=== PATIENT | female | born 1955 | race Caucasian/White ===

== ENCOUNTER 2018-12-22 15:03 | Inpatient (IN) | payer BC ==
[2018-12-22] MEDS ORDERED: Clotrimazole 1% Cream 15 GM TUBE TOP PRN (17:09)
[2018-12-22] MEDS ORDERED: Albuterol Sulfate 2.5 mg/3 ml Neb NEB PRN (18:30)
[2018-12-22] MEDS: Mometasone/Formoterol 60 PUFF AER INH SCH (19:50)
[2018-12-22] MEDS: traMADol HCl 50 MG TAB PO SCH (19:51)
[2018-12-22] MEDS: Acetaminophen 500 MG TAB PO SCH (19:53)
[2018-12-22] MEDS: Senokot S 8.6-50 MG TAB PO SCH (21:07)
[2018-12-22] MEDS: Gabapentin 300 MG CAP PO SCH (21:07)
[2018-12-22] MEDS: Cyclobenzaprine 10 MG TAB PO SCH (21:07)
[2018-12-22] MEDS: Clotrimazole 1% Cream 15 GM TUBE TOP SCH (21:11)
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
[2018-12-23] MEDS: traZODone HCl 50 MG TAB PO PRN (00:15)
[2018-12-23] MEDS: Acetaminophen 500 MG TAB PO SCH ×4 (02:13→20:09)
[2018-12-23] MEDS: traMADol HCl 50 MG TAB PO SCH ×4 (02:15→20:07)
[2018-12-23] MEDS: Levothyroxine Sodium 75 MCG TAB PO SCH (05:30)
[2018-12-23] MEDS: Levothyroxine Sodium 100 MCG TAB PO SCH (05:31)
[2018-12-23] MEDS: Mometasone/Formoterol 60 PUFF AER INH SCH ×2 (07:52→20:09)
[2018-12-23] MEDS: Clotrimazole 1% Cream 15 GM TUBE TOP SCH ×2 (08:27→20:12)
[2018-12-23] MEDS: Gabapentin 300 MG CAP PO SCH ×3 (08:28→20:59)
[2018-12-23] MEDS: Cyclobenzaprine 10 MG TAB PO SCH ×3 (08:28→20:59)
[2018-12-23] MEDS: Losartan 25 MG TAB PO SCH (08:28)
[2018-12-23] MEDS: Polyethylene Glycol 3350 17 GM Packet PO SCH (08:29)
[2018-12-23] MEDS: Senokot S 8.6-50 MG TAB PO SCH ×2 (08:29→20:59)
[2018-12-24] MEDS: traMADol HCl 50 MG TAB PO SCH ×4 (01:48→20:20)
[2018-12-24] MEDS: Acetaminophen 500 MG TAB PO SCH ×4 (01:49→20:20)
[2018-12-24] MEDS: Levothyroxine Sodium 75 MCG TAB PO SCH (06:03)
[2018-12-24] MEDS: Levothyroxine Sodium 100 MCG TAB PO SCH (06:03)
[2018-12-24] MEDS ORDERED: traMADol HCl 50 MG TAB PO SCH (06:30)
[2018-12-24] MEDS: Mometasone/Formoterol 60 PUFF AER INH SCH ×2 (08:10→20:17)
[2018-12-24] MEDS: Senokot S 8.6-50 MG TAB PO SCH ×2 (08:12→20:56)
[2018-12-24] MEDS: Losartan 25 MG TAB PO SCH (08:12)
[2018-12-24] MEDS: Gabapentin 300 MG CAP PO SCH ×3 (08:12→20:56)
[2018-12-24] MEDS: Cyclobenzaprine 10 MG TAB PO SCH ×3 (08:12→20:56)
[2018-12-24] MEDS: Polyethylene Glycol 3350 17 GM Packet PO SCH (08:13)
[2018-12-24] MEDS: Clotrimazole 1% Cream 15 GM TUBE TOP SCH ×2 (08:13→20:58)
[2018-12-25] MEDS: Acetaminophen 500 MG TAB PO SCH ×4 (03:08→20:44)
[2018-12-25] MEDS: traMADol HCl 50 MG TAB PO SCH ×4 (03:08→20:44)
[2018-12-25] MEDS: Levothyroxine Sodium 75 MCG TAB PO SCH (06:15)
[2018-12-25] MEDS: Levothyroxine Sodium 100 MCG TAB PO SCH (06:15)
[2018-12-25] MEDS: Mometasone/Formoterol 60 PUFF AER INH SCH ×2 (06:17→20:51)
[2018-12-25] MEDS: Gabapentin 300 MG CAP PO SCH ×3 (09:48→20:44)
[2018-12-25] MEDS: Cyclobenzaprine 10 MG TAB PO SCH ×3 (09:48→20:45)
[2018-12-25] MEDS: Clotrimazole 1% Cream 15 GM TUBE TOP SCH ×2 (09:48→20:45)
[2018-12-25] MEDS: Losartan 25 MG TAB PO SCH (09:48)
[2018-12-25] MEDS: Polyethylene Glycol 3350 17 GM Packet PO SCH (09:49)
[2018-12-25] MEDS: Senokot S 8.6-50 MG TAB PO SCH ×2 (09:49→20:44)
[2018-12-26] MEDS: traMADol HCl 50 MG TAB PO SCH ×5 (02:00→20:02)
[2018-12-26] MEDS: Acetaminophen 500 MG TAB PO SCH ×5 (03:30→20:02)
[2018-12-26] MEDS: Levothyroxine Sodium 75 MCG TAB PO SCH (03:49)
[2018-12-26] MEDS: Levothyroxine Sodium 100 MCG TAB PO SCH (03:52)
[2018-12-26] MEDS: Mometasone/Formoterol 60 PUFF AER INH SCH ×2 (07:36→18:04)
[2018-12-26] MEDS: Losartan 25 MG TAB PO SCH (07:53)
[2018-12-26] MEDS: Senokot S 8.6-50 MG TAB PO SCH ×2 (07:53→20:03)
[2018-12-26] MEDS: Cyclobenzaprine 10 MG TAB PO SCH ×3 (07:53→20:03)
[2018-12-26] MEDS: Gabapentin 300 MG CAP PO SCH ×3 (07:53→20:03)
[2018-12-26] MEDS: Clotrimazole 1% Cream 15 GM TUBE TOP SCH ×2 (07:55→20:04)
[2018-12-26] MEDS: Polyethylene Glycol 3350 17 GM Packet PO SCH (07:59)
[2018-12-26] MEDS: traZODone HCl 50 MG TAB PO PRN (20:03)
[2018-12-27] MEDS: Acetaminophen 500 MG TAB PO SCH ×4 (01:17→20:01)
[2018-12-27] MEDS: traMADol HCl 50 MG TAB PO SCH ×4 (01:17→20:00)
[2018-12-27] MEDS: Levothyroxine Sodium 75 MCG TAB PO SCH (06:11)
[2018-12-27] MEDS: Levothyroxine Sodium 100 MCG TAB PO SCH (06:11)
[2018-12-27] MEDS: Mometasone/Formoterol 60 PUFF AER INH SCH ×2 (06:12→19:56)
[2018-12-27] MEDS: Senokot S 8.6-50 MG TAB PO SCH ×2 (08:46→20:02)
[2018-12-27] MEDS: Losartan 25 MG TAB PO SCH (08:46)
[2018-12-27] MEDS: Gabapentin 300 MG CAP PO SCH ×3 (08:46→20:02)
[2018-12-27] MEDS: Cyclobenzaprine 10 MG TAB PO SCH ×3 (08:47→20:00)
[2018-12-27] MEDS: Clotrimazole 1% Cream 15 GM TUBE TOP SCH ×2 (08:48→20:03)
[2018-12-27] MEDS: Polyethylene Glycol 3350 17 GM Packet PO SCH (08:49)
[2018-12-27] MEDS: traZODone HCl 50 MG TAB PO PRN (20:00)
[2018-12-28] MEDS: traMADol HCl 50 MG TAB PO SCH ×4 (01:46→19:59)
[2018-12-28] MEDS: Acetaminophen 500 MG TAB PO SCH ×4 (01:47→19:59)
[2018-12-28] MEDS: Levothyroxine Sodium 100 MCG TAB PO SCH (05:57)
[2018-12-28] MEDS: Levothyroxine Sodium 75 MCG TAB PO SCH (05:57)
[2018-12-28] MEDS: Mometasone/Formoterol 60 PUFF AER INH SCH ×2 (06:01→19:58)
[2018-12-28] MEDS: Gabapentin 300 MG CAP PO SCH ×3 (08:25→20:03)
[2018-12-28] MEDS: Cyclobenzaprine 10 MG TAB PO SCH ×3 (08:25→20:03)
[2018-12-28] MEDS: Senokot S 8.6-50 MG TAB PO SCH ×2 (08:25→20:09)
[2018-12-28] MEDS: Clotrimazole 1% Cream 15 GM TUBE TOP SCH ×2 (08:26→20:10)
[2018-12-28] MEDS: Losartan 25 MG TAB PO SCH (08:26)
[2018-12-28] MEDS: Polyethylene Glycol 3350 17 GM Packet PO SCH (08:31)
[2018-12-29] MEDS: Acetaminophen 500 MG TAB PO SCH ×4 (01:58→19:30)
[2018-12-29] MEDS: traMADol HCl 50 MG TAB PO SCH ×4 (01:58→19:30)
[2018-12-29] MEDS: Levothyroxine Sodium 75 MCG TAB PO SCH (05:28)
[2018-12-29] MEDS: Levothyroxine Sodium 100 MCG TAB PO SCH (05:28)
[2018-12-29] MEDS: Mometasone/Formoterol 60 PUFF AER INH SCH ×2 (05:30→19:30)
[2018-12-29] MEDS: Senokot S 8.6-50 MG TAB PO SCH ×2 (09:00→20:40)
[2018-12-29] MEDS: Losartan 25 MG TAB PO SCH (09:00)
[2018-12-29] MEDS: Gabapentin 300 MG CAP PO SCH ×3 (09:00→20:41)
[2018-12-29] MEDS: Cyclobenzaprine 10 MG TAB PO SCH ×3 (09:00→20:41)
[2018-12-29] MEDS: Clotrimazole 1% Cream 15 GM TUBE TOP SCH ×2 (09:01→20:41)
[2018-12-29] MEDS: Polyethylene Glycol 3350 17 GM Packet PO SCH (09:01)
[2018-12-30] MEDS: Acetaminophen 500 MG TAB PO SCH ×4 (01:45→21:11)
[2018-12-30] MEDS: traMADol HCl 50 MG TAB PO SCH ×4 (01:45→21:11)
[2018-12-30] MEDS: Levothyroxine Sodium 100 MCG TAB PO SCH (05:29)
[2018-12-30] MEDS: Mometasone/Formoterol 60 PUFF AER INH SCH ×2 (05:29→21:10)
[2018-12-30] MEDS: Levothyroxine Sodium 75 MCG TAB PO SCH (05:29)
[2018-12-30] MEDS: Gabapentin 300 MG CAP PO SCH ×3 (08:09→21:12)
[2018-12-30] MEDS: Senokot S 8.6-50 MG TAB PO SCH ×2 (08:09→21:13)
[2018-12-30] MEDS: Polyethylene Glycol 3350 17 GM Packet PO SCH (08:09)
[2018-12-30] MEDS: Cyclobenzaprine 10 MG TAB PO SCH ×3 (08:10→21:12)
[2018-12-30] MEDS: Losartan 25 MG TAB PO SCH (08:10)
[2018-12-30] MEDS: Clotrimazole 1% Cream 15 GM TUBE TOP SCH ×2 (08:11→21:12)
[2018-12-31] MEDS: traMADol HCl 50 MG TAB PO SCH ×4 (03:10→20:18)
[2018-12-31] MEDS: Acetaminophen 500 MG TAB PO SCH ×4 (03:10→20:18)
[2018-12-31] MEDS: Levothyroxine Sodium 75 MCG TAB PO SCH (05:45)
[2018-12-31] MEDS: Levothyroxine Sodium 100 MCG TAB PO SCH (05:45)
[2018-12-31] MEDS: Mometasone/Formoterol 60 PUFF AER INH SCH ×2 (08:15→20:16)
[2018-12-31] MEDS: Gabapentin 300 MG CAP PO SCH ×4 (08:15→20:20)
[2018-12-31] MEDS: Losartan 25 MG TAB PO SCH (08:15)
[2018-12-31] MEDS: Clotrimazole 1% Cream 15 GM TUBE TOP SCH ×2 (08:18→20:20)
[2018-12-31] MEDS: Senokot S 8.6-50 MG TAB PO SCH ×2 (08:18→20:21)
[2018-12-31] MEDS: Cyclobenzaprine 10 MG TAB PO SCH ×3 (08:18→20:20)
[2018-12-31] MEDS: Polyethylene Glycol 3350 17 GM Packet PO SCH (08:19)
[2019-01-01] MEDS: Acetaminophen 500 MG TAB PO SCH ×4 (02:17→20:04)
[2019-01-01] MEDS: traMADol HCl 50 MG TAB PO SCH ×4 (02:17→20:06)
[2019-01-01] MEDS: Levothyroxine Sodium 100 MCG TAB PO SCH (05:31)
[2019-01-01] MEDS: Levothyroxine Sodium 75 MCG TAB PO SCH (05:31)
[2019-01-01] MEDS: Mometasone/Formoterol 60 PUFF AER INH SCH ×2 (08:23→20:00)
[2019-01-01] MEDS: Cyclobenzaprine 10 MG TAB PO SCH ×3 (08:24→20:04)
[2019-01-01] MEDS: Gabapentin 300 MG CAP PO SCH ×3 (08:24→20:05)
[2019-01-01] MEDS: Senokot S 8.6-50 MG TAB PO SCH ×2 (08:24→20:05)
[2019-01-01] MEDS: Losartan 25 MG TAB PO SCH (08:25)
[2019-01-01] MEDS: Clotrimazole 1% Cream 15 GM TUBE TOP SCH ×2 (08:26→21:00)
[2019-01-01] MEDS: Polyethylene Glycol 3350 17 GM Packet PO SCH (08:26)
[2019-01-01] MEDS ORDERED: Sterile Water Irrigation 250 ML BOT ONE (14:20)
[2019-01-01] MEDS: traZODone HCl 50 MG TAB PO PRN (20:05)
[2019-01-02] MEDS: Acetaminophen 500 MG TAB PO SCH ×4 (02:26→19:42)
[2019-01-02] MEDS: Levothyroxine Sodium 75 MCG TAB PO SCH (05:22)
[2019-01-02] MEDS: Levothyroxine Sodium 100 MCG TAB PO SCH (05:23)
[2019-01-02] MEDS: Mometasone/Formoterol 60 PUFF AER INH SCH ×2 (05:23→19:13)
[2019-01-02] MEDS: traMADol HCl 50 MG TAB PO SCH ×3 (07:40→19:42)
[2019-01-02] MEDS ORDERED: traMADol HCl 50 MG TAB PO SCH (08:00)
[2019-01-02] MEDS: Cyclobenzaprine 10 MG TAB PO SCH ×3 (08:49→20:52)
[2019-01-02] MEDS: Gabapentin 300 MG CAP PO SCH ×3 (08:49→20:52)
[2019-01-02] MEDS: Losartan 25 MG TAB PO SCH (08:49)
[2019-01-02] MEDS: Senokot S 8.6-50 MG TAB PO SCH ×2 (08:53→20:51)
[2019-01-02] MEDS: Clotrimazole 1% Cream 15 GM TUBE TOP SCH ×2 (08:54→19:45)
[2019-01-02] MEDS: Polyethylene Glycol 3350 17 GM Packet PO SCH (08:54)
[2019-01-02] MEDS: traZODone HCl 50 MG TAB PO PRN (20:52)
[2019-01-03] MEDS: Acetaminophen 500 MG TAB PO SCH ×4 (01:40→20:03)
[2019-01-03] MEDS: traMADol HCl 50 MG TAB PO SCH ×4 (01:40→20:01)
[2019-01-03] MEDS: Levothyroxine Sodium 75 MCG TAB PO SCH (05:42)
[2019-01-03] MEDS: Levothyroxine Sodium 100 MCG TAB PO SCH (05:43)
[2019-01-03] MEDS: Mometasone/Formoterol 60 PUFF AER INH SCH ×2 (07:37→20:03)
[2019-01-03] MEDS: Polyethylene Glycol 3350 17 GM Packet PO SCH (09:09)
[2019-01-03] MEDS: Gabapentin 300 MG CAP PO SCH ×3 (09:10→20:55)
[2019-01-03] MEDS: Senokot S 8.6-50 MG TAB PO SCH ×2 (09:10→20:55)
[2019-01-03] MEDS: Cyclobenzaprine 10 MG TAB PO SCH ×3 (09:10→21:00)
[2019-01-03] MEDS: Losartan 25 MG TAB PO SCH (09:10)
[2019-01-03] MEDS: Clotrimazole 1% Cream 15 GM TUBE TOP SCH ×2 (09:11→20:56)
[2019-01-03] MEDS: traZODone HCl 50 MG TAB PO PRN (20:59)
[2019-01-04] MEDS: Acetaminophen 500 MG TAB PO SCH ×4 (02:00→19:36)
[2019-01-04] MEDS: traMADol HCl 50 MG TAB PO SCH ×4 (02:01→19:34)
[2019-01-04] MEDS: Levothyroxine Sodium 75 MCG TAB PO SCH (05:54)
[2019-01-04] MEDS: Levothyroxine Sodium 100 MCG TAB PO SCH (05:54)
[2019-01-04] MEDS: Mometasone/Formoterol 60 PUFF AER INH SCH ×2 (08:02→19:36)
[2019-01-04] MEDS: Gabapentin 300 MG CAP PO SCH ×3 (08:03→20:26)
[2019-01-04] MEDS: Polyethylene Glycol 3350 17 GM Packet PO SCH (08:03)
[2019-01-04] MEDS: Senokot S 8.6-50 MG TAB PO SCH ×2 (08:04→20:26)
[2019-01-04] MEDS: Cyclobenzaprine 10 MG TAB PO SCH ×3 (08:04→20:26)
[2019-01-04] MEDS: Losartan 25 MG TAB PO SCH (08:04)
[2019-01-04] MEDS: Clotrimazole 1% Cream 15 GM TUBE TOP SCH ×2 (08:04→20:27)
[2019-01-04] MEDS: Mupirocin 2% Ointment 22 GM Tube TOP SCH ×2 (08:24→20:25)
[2019-01-04] MEDS: Sulfameth/Trimethoprim DS 800-160mg TAB PO SCH ×2 (08:25→20:26)
[2019-01-04] MEDS: traZODone HCl 50 MG TAB PO PRN (20:27)
[2019-01-05] MEDS: Acetaminophen 500 MG TAB PO SCH ×4 (01:52→21:05)
[2019-01-05] MEDS: traMADol HCl 50 MG TAB PO SCH ×4 (01:52→21:05)
[2019-01-05] MEDS: Levothyroxine Sodium 100 MCG TAB PO SCH (05:57)
[2019-01-05] MEDS: Levothyroxine Sodium 75 MCG TAB PO SCH (05:57)
[2019-01-05] MEDS: Mometasone/Formoterol 60 PUFF AER INH SCH ×2 (07:17→18:34)
[2019-01-05] MEDS: Mupirocin 2% Ointment 22 GM Tube TOP SCH ×2 (08:36→21:05)
[2019-01-05] MEDS: Gabapentin 300 MG CAP PO SCH ×3 (08:36→21:05)
[2019-01-05] MEDS: Senokot S 8.6-50 MG TAB PO SCH ×2 (08:36→21:05)
[2019-01-05] MEDS: Losartan 25 MG TAB PO SCH (08:36)
[2019-01-05] MEDS: Cyclobenzaprine 10 MG TAB PO SCH ×3 (08:37→21:05)
[2019-01-05] MEDS: Sulfameth/Trimethoprim DS 800-160mg TAB PO SCH ×2 (08:37→21:05)
[2019-01-05] MEDS: Polyethylene Glycol 3350 17 GM Packet PO SCH (08:38)
[2019-01-05] MEDS: Clotrimazole 1% Cream 15 GM TUBE TOP SCH ×2 (08:38→21:04)
--- NOTE | 2019-01-05 12:58 | RAD ---
Right hip 2 views HISTORY: Right hip pain. FINDINGS: There is moderate joint space narrowing. Mild osteophytosis and subchondral sclerosis. Femo ral head contour is maintained. No acute fracture, dislocation, or progressive osseous erosions IMPRESSION: Osteoarthritis right hip.
[2019-01-06] MEDS: traMADol HCl 50 MG TAB PO SCH ×4 (02:10→19:46)
[2019-01-06] MEDS: Acetaminophen 500 MG TAB PO SCH ×4 (02:10→19:47)
[2019-01-06] MEDS: Levothyroxine Sodium 75 MCG TAB PO SCH (05:02)
[2019-01-06] MEDS: Levothyroxine Sodium 100 MCG TAB PO SCH (05:02)
[2019-01-06] MEDS: Mometasone/Formoterol 60 PUFF AER INH SCH ×2 (07:30→19:55)
[2019-01-06] MEDS: Sulfameth/Trimethoprim DS 800-160mg TAB PO SCH ×2 (08:12→19:47)
[2019-01-06] MEDS: Losartan 25 MG TAB PO SCH (08:14)
[2019-01-06] MEDS: Clotrimazole 1% Cream 15 GM TUBE TOP SCH ×2 (08:14→19:55)
[2019-01-06] MEDS: Gabapentin 300 MG CAP PO SCH ×3 (08:14→19:47)
[2019-01-06] MEDS: Cyclobenzaprine 10 MG TAB PO SCH ×3 (08:14→19:47)
[2019-01-06] MEDS: Polyethylene Glycol 3350 17 GM Packet PO SCH (08:15)
[2019-01-06] MEDS: Mupirocin 2% Ointment 22 GM Tube TOP SCH ×2 (08:15→19:55)
[2019-01-06] MEDS: Senokot S 8.6-50 MG TAB PO SCH ×2 (08:15→19:46)
[2019-01-06] MEDS: traZODone HCl 50 MG TAB PO PRN (19:47)
[2019-01-07] MEDS: traMADol HCl 50 MG TAB PO SCH ×4 (01:14→19:37)
[2019-01-07] MEDS: Acetaminophen 500 MG TAB PO SCH ×4 (01:15→19:36)
[2019-01-07] MEDS: Levothyroxine Sodium 100 MCG TAB PO SCH (06:07)
[2019-01-07] MEDS: Levothyroxine Sodium 75 MCG TAB PO SCH (06:07)
[2019-01-07] MEDS: Mometasone/Formoterol 60 PUFF AER INH SCH ×2 (06:07→19:06)
[2019-01-07] MEDS: Losartan 25 MG TAB PO SCH (08:17)
[2019-01-07] MEDS: Senokot S 8.6-50 MG TAB PO SCH ×2 (08:17→21:26)
[2019-01-07] MEDS: Cyclobenzaprine 10 MG TAB PO SCH ×3 (08:17→21:26)
[2019-01-07] MEDS: Gabapentin 300 MG CAP PO SCH ×3 (08:17→21:26)
[2019-01-07] MEDS: Clotrimazole 1% Cream 15 GM TUBE TOP SCH ×2 (08:18→21:27)
[2019-01-07] MEDS: Polyethylene Glycol 3350 17 GM Packet PO SCH (08:18)
[2019-01-07] MEDS: Sulfameth/Trimethoprim DS 800-160mg TAB PO SCH ×2 (08:22→21:26)
[2019-01-07] MEDS: Mupirocin 2% Ointment 22 GM Tube TOP SCH ×2 (08:27→21:30)
[2019-01-07] MEDS: traZODone HCl 50 MG TAB PO PRN (21:25)
[2019-01-08] MEDS: Acetaminophen 500 MG TAB PO SCH ×4 (01:46→19:19)
[2019-01-08] MEDS: traMADol HCl 50 MG TAB PO SCH ×4 (01:47→19:20)
[2019-01-08] MEDS: Levothyroxine Sodium 100 MCG TAB PO SCH (05:52)
[2019-01-08] MEDS: Levothyroxine Sodium 75 MCG TAB PO SCH (05:52)
[2019-01-08] MEDS: Mometasone/Formoterol 60 PUFF AER INH SCH ×2 (07:38→19:18)
[2019-01-08] MEDS: Senokot S 8.6-50 MG TAB PO SCH ×2 (09:17→21:33)
[2019-01-08] MEDS: Losartan 25 MG TAB PO SCH (09:17)
[2019-01-08] MEDS: Cyclobenzaprine 10 MG TAB PO SCH ×3 (09:17→21:33)
[2019-01-08] MEDS: Sulfameth/Trimethoprim DS 800-160mg TAB PO SCH ×2 (09:17→21:33)
[2019-01-08] MEDS: Mupirocin 2% Ointment 22 GM Tube TOP SCH ×2 (09:18→22:26)
[2019-01-08] MEDS: Clotrimazole 1% Cream 15 GM TUBE TOP SCH ×2 (09:18→21:32)
[2019-01-08] MEDS: Polyethylene Glycol 3350 17 GM Packet PO SCH (09:19)
[2019-01-08] MEDS: Gabapentin 300 MG CAP PO SCH ×3 (09:19→21:33)
[2019-01-09] MEDS: Acetaminophen 500 MG TAB PO SCH ×4 (02:06→19:28)
[2019-01-09] MEDS: traMADol HCl 50 MG TAB PO SCH ×4 (02:06→19:29)
[2019-01-09] MEDS: Levothyroxine Sodium 100 MCG TAB PO SCH (05:27)
[2019-01-09] MEDS: Levothyroxine Sodium 75 MCG TAB PO SCH (05:27)
[2019-01-09] MEDS: Mometasone/Formoterol 60 PUFF AER INH SCH ×2 (07:27→19:27)
[2019-01-09] MEDS: Senokot S 8.6-50 MG TAB PO SCH ×2 (08:08→20:46)
[2019-01-09] MEDS: Losartan 25 MG TAB PO SCH (08:08)
[2019-01-09] MEDS: Clotrimazole 1% Cream 15 GM TUBE TOP SCH ×2 (08:09→20:47)
[2019-01-09] MEDS: Sulfameth/Trimethoprim DS 800-160mg TAB PO SCH ×2 (08:09→20:47)
[2019-01-09] MEDS: Gabapentin 300 MG CAP PO SCH ×3 (08:09→20:46)
[2019-01-09] MEDS: Cyclobenzaprine 10 MG TAB PO SCH ×3 (08:09→20:46)
[2019-01-09] MEDS: Mupirocin 2% Ointment 22 GM Tube TOP SCH ×2 (08:10→20:47)
[2019-01-09 08:11] VITALS: BMI 48.0
[2019-01-09] MEDS: Polyethylene Glycol 3350 17 GM Packet PO SCH (08:13)
[2019-01-10] MEDS: Acetaminophen 500 MG TAB PO SCH ×4 (02:36→21:02)
[2019-01-10] MEDS: traMADol HCl 50 MG TAB PO SCH ×4 (02:36→21:05)
[2019-01-10] MEDS: Levothyroxine Sodium 75 MCG TAB PO SCH (05:24)
[2019-01-10] MEDS: Levothyroxine Sodium 100 MCG TAB PO SCH (05:24)
[2019-01-10] MEDS: Mometasone/Formoterol 60 PUFF AER INH SCH ×2 (07:15→21:01)
[2019-01-10] MEDS: Senokot S 8.6-50 MG TAB PO SCH ×2 (08:14→21:03)
[2019-01-10] MEDS: Gabapentin 300 MG CAP PO SCH ×3 (08:14→21:03)
[2019-01-10] MEDS: Sulfameth/Trimethoprim DS 800-160mg TAB PO SCH ×2 (08:14→21:04)
[2019-01-10] MEDS: Losartan 25 MG TAB PO SCH (08:14)
[2019-01-10] MEDS: Cyclobenzaprine 10 MG TAB PO SCH ×3 (08:15→21:02)
[2019-01-10] MEDS: Polyethylene Glycol 3350 17 GM Packet PO SCH (08:16)
[2019-01-10] MEDS: Mupirocin 2% Ointment 22 GM Tube TOP SCH ×2 (08:16→21:03)
[2019-01-10] MEDS: Clotrimazole 1% Cream 15 GM TUBE TOP SCH ×2 (08:16→21:02)
[2019-01-11] MEDS: traMADol HCl 50 MG TAB PO SCH ×4 (01:16→19:30)
[2019-01-11] MEDS: Acetaminophen 500 MG TAB PO SCH ×4 (01:16→21:20)
[2019-01-11] MEDS: Levothyroxine Sodium 100 MCG TAB PO SCH (05:22)
[2019-01-11] MEDS: Levothyroxine Sodium 75 MCG TAB PO SCH (05:22)
[2019-01-11] MEDS: Cyclobenzaprine 10 MG TAB PO SCH ×3 (08:06→21:20)
[2019-01-11] MEDS: Senokot S 8.6-50 MG TAB PO SCH ×2 (08:06→21:21)
[2019-01-11] MEDS: Losartan 25 MG TAB PO SCH (08:07)
[2019-01-11] MEDS: Gabapentin 300 MG CAP PO SCH ×3 (08:07→21:21)
[2019-01-11] MEDS: Mupirocin 2% Ointment 22 GM Tube TOP SCH ×3 (08:08→21:32)
[2019-01-11] MEDS: Clotrimazole 1% Cream 15 GM TUBE TOP SCH ×2 (08:08→21:20)
[2019-01-11] MEDS: Mometasone/Formoterol 60 PUFF AER INH SCH ×2 (08:08→19:29)
[2019-01-11] MEDS: Sulfameth/Trimethoprim DS 800-160mg TAB PO SCH ×2 (08:08→21:21)
[2019-01-11] MEDS: Polyethylene Glycol 3350 17 GM Packet PO SCH (08:09)
[2019-01-11] MEDS ORDERED: Acetaminophen 500 MG TAB ONE (19:59)
[2019-01-12] MEDS: Acetaminophen 500 MG TAB PO SCH ×4 (01:46→19:47)
[2019-01-12] MEDS: traMADol HCl 50 MG TAB PO SCH ×4 (01:47→19:46)
[2019-01-12] MEDS ORDERED: Acetaminophen 500 MG TAB ONE (02:02)
[2019-01-12] MEDS: Levothyroxine Sodium 75 MCG TAB PO SCH (05:09)
[2019-01-12] MEDS: Levothyroxine Sodium 100 MCG TAB PO SCH (05:09)
[2019-01-12] MEDS: Mometasone/Formoterol 60 PUFF AER INH SCH ×2 (07:48→18:16)
[2019-01-12] MEDS: Losartan 25 MG TAB PO SCH (07:55)
[2019-01-12] MEDS: Senokot S 8.6-50 MG TAB PO SCH ×2 (09:05→20:48)
[2019-01-12] MEDS: Sulfameth/Trimethoprim DS 800-160mg TAB PO SCH (09:05)
[2019-01-12] MEDS: Gabapentin 300 MG CAP PO SCH ×3 (09:05→20:48)
[2019-01-12] MEDS: Clotrimazole 1% Cream 15 GM TUBE TOP SCH ×2 (09:06→20:47)
[2019-01-12] MEDS: Polyethylene Glycol 3350 17 GM Packet PO SCH (09:06)
[2019-01-12] MEDS: Mupirocin 2% Ointment 22 GM Tube TOP SCH ×2 (09:06→20:48)
[2019-01-12] MEDS: Cyclobenzaprine 10 MG TAB PO SCH ×3 (09:06→20:48)
[2019-01-12] MEDS: traZODone HCl 50 MG TAB PO PRN (20:48)
[2019-01-13] MEDS: Acetaminophen 500 MG TAB PO SCH ×4 (01:52→20:57)
[2019-01-13] MEDS: traMADol HCl 50 MG TAB PO SCH ×4 (01:52→20:57)
[2019-01-13] MEDS: Levothyroxine Sodium 100 MCG TAB PO SCH (05:58)
[2019-01-13] MEDS: Levothyroxine Sodium 75 MCG TAB PO SCH (05:58)
[2019-01-13] MEDS: Mometasone/Formoterol 60 PUFF AER INH SCH ×2 (05:59→20:56)
[2019-01-13] MEDS: Cyclobenzaprine 10 MG TAB PO SCH ×3 (08:21→20:57)
[2019-01-13] MEDS: Senokot S 8.6-50 MG TAB PO SCH ×2 (08:21→20:59)
[2019-01-13] MEDS: Gabapentin 300 MG CAP PO SCH ×3 (08:21→20:57)
[2019-01-13] MEDS: Losartan 25 MG TAB PO SCH (08:23)
[2019-01-13] MEDS: Mupirocin 2% Ointment 22 GM Tube TOP SCH ×2 (08:23→20:58)
[2019-01-13] MEDS: Polyethylene Glycol 3350 17 GM Packet PO SCH (08:23)
[2019-01-13] MEDS: Clotrimazole 1% Cream 15 GM TUBE TOP SCH ×2 (08:24→20:58)
[2019-01-14] MEDS: Acetaminophen 500 MG TAB PO SCH ×4 (03:11→20:10)
[2019-01-14] MEDS: traMADol HCl 50 MG TAB PO SCH ×4 (03:13→20:11)
[2019-01-14] MEDS: Levothyroxine Sodium 100 MCG TAB PO SCH (05:44)
[2019-01-14] MEDS: Levothyroxine Sodium 75 MCG TAB PO SCH (05:44)
[2019-01-14] MEDS: Losartan 25 MG TAB PO SCH (08:41)
[2019-01-14] MEDS: Gabapentin 300 MG CAP PO SCH ×3 (08:41→20:11)
[2019-01-14] MEDS: Senokot S 8.6-50 MG TAB PO SCH ×2 (08:42→20:11)
[2019-01-14] MEDS: Mupirocin 2% Ointment 22 GM Tube TOP SCH (08:42)
[2019-01-14] MEDS: Polyethylene Glycol 3350 17 GM Packet PO SCH (08:42)
[2019-01-14] MEDS: Cyclobenzaprine 10 MG TAB PO SCH ×3 (08:42→20:10)
[2019-01-14] MEDS: Mometasone/Formoterol 60 PUFF AER INH SCH ×2 (08:43→20:09)
[2019-01-14] MEDS: Clotrimazole 1% Cream 15 GM TUBE TOP SCH ×2 (08:43→20:12)
[2019-01-15] MEDS: traMADol HCl 50 MG TAB PO SCH ×4 (02:44→19:58)
[2019-01-15] MEDS: Acetaminophen 500 MG TAB PO SCH ×4 (02:45→19:58)
[2019-01-15] MEDS: Levothyroxine Sodium 100 MCG TAB PO SCH (05:27)
[2019-01-15] MEDS: Levothyroxine Sodium 75 MCG TAB PO SCH (05:27)
[2019-01-15] MEDS: Senokot S 8.6-50 MG TAB PO SCH ×2 (08:17→19:59)
[2019-01-15] MEDS: Losartan 25 MG TAB PO SCH (08:18)
[2019-01-15] MEDS: Cyclobenzaprine 10 MG TAB PO SCH ×3 (08:18→19:59)
[2019-01-15] MEDS: Gabapentin 300 MG CAP PO SCH ×3 (08:18→19:59)
[2019-01-15] MEDS: Polyethylene Glycol 3350 17 GM Packet PO SCH (08:20)
[2019-01-15] MEDS: Clotrimazole 1% Cream 15 GM TUBE TOP SCH ×2 (08:20→20:00)
[2019-01-15] MEDS: Mometasone/Formoterol 60 PUFF AER INH SCH ×2 (08:21→19:57)
[2019-01-15] MEDS: Lidocaine 5% Patch TD SCH (09:06)
[2019-01-15] MEDS ORDERED: methylPREDNISolone Acetate 40 mg/ml Vial IM SCH (12:30)
[2019-01-15] MEDS: traZODone HCl 50 MG TAB PO PRN (19:59)
[2019-01-15] MEDS ORDERED: Lidocaine Patch Removal 1 EACH TOP SCH (21:00)
[2019-01-16] MEDS: traMADol HCl 50 MG TAB PO SCH ×2 (02:15→07:28)
[2019-01-16] MEDS: Acetaminophen 500 MG TAB PO SCH ×2 (02:16→07:28)
[2019-01-16] MEDS: Levothyroxine Sodium 75 MCG TAB PO SCH (05:56)
[2019-01-16] MEDS: Levothyroxine Sodium 100 MCG TAB PO SCH (05:56)
[2019-01-16] MEDS: Mometasone/Formoterol 60 PUFF AER INH SCH (05:56)
[2019-01-16 06:38] VITALS: BP 147/88; TEMP 97.6
[2019-01-16] MEDS: Losartan 25 MG TAB PO SCH (07:29)
[2019-01-16] MEDS: Polyethylene Glycol 3350 17 GM Packet PO SCH (08:55)
[2019-01-16] MEDS: Gabapentin 300 MG CAP PO SCH (08:55)
[2019-01-16] MEDS: Senokot S 8.6-50 MG TAB PO SCH (08:55)
[2019-01-16] MEDS: Clotrimazole 1% Cream 15 GM TUBE TOP SCH (08:55)
[2019-01-16] MEDS: Cyclobenzaprine 10 MG TAB PO SCH (08:55)
[2019-01-16] MEDS: Lidocaine 5% Patch TD SCH (08:57)
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
== END 2019-01-16 11:45 | disposition home or self-care (01) | DRG 560 ==
LOC: MADMS 15:03
PROVIDERS: ADMIT Family Medicine; ATTEND Family Medicine
DX: S02.113D Unspecified occipital condyle fracture, subsequent encounter for fracture with routine healing (principal); Z68.42 Body mass index [BMI] 45.0-49.9, adult; S22.41XD Multiple fractures of ribs, right side, subsequent encounter for fracture with routine healing; S22.089D Unspecified fracture of T11-T12 vertebra, subsequent encounter for fracture with routine healing; S32.029D Unspecified fracture of second lumbar vertebra, subsequent encounter for fracture with routine healing; S32.039D Unspecified fracture of third lumbar vertebra, subsequent encounter for fracture with routine healing; S62.312D Displaced fracture of base of third metacarpal bone, right hand, subsequent encounter for fracture with routine healing; S81.811D Laceration without foreign body, right lower leg, subsequent encounter; J45.909 Unspecified asthma, uncomplicated; I10 Essential (primary) hypertension; B37.2 Candidiasis of skin and nail; E03.9 Hypothyroidism, unspecified; E66.01 Morbid (severe) obesity due to excess calories; Z90.710 Acquired absence of both cervix and uterus; Z88.8 Allergy status to other drugs, medicaments and biological substances; V49.50XD Passenger injured in collision with unspecified motor vehicles in traffic accident, subsequent encounter
CPT/HCPCS: 87081; 87430; J1040

== ENCOUNTER 2019-07-28 11:43 | Outpatient (CLI) | payer OTHER ==
[2019-07-28 11:53] LABS: Bilirubin Negative (Negative); Blood, Urine Trace (Negative); Clarity Clear (Clear); Glucose, Urine (Dipstick) Negative (Negative); Leukocyte Small (Negative); Nitrite Negative (Negative); Protein, Urine (Dipstick) Negative (Neg-Trace); Urobilinogen 0.2 mg/dL (Less than 2)
[2019-07-28 12:05] LABS: Bacteria/HPF Rare-Few HPF (None Seen); RBC/HPF 0-3 HPF (0-3); Squamous Epithelial 0-3 HPF (0-3)
--- NOTE | 2019-07-28 12:08 | RAD ---
Exam:2 views right hip HISTORY: Pain COMPARISON: 01/05/2019 FINDINGS: Stable mild to moderate loss of joint space height. The contour of the femoral head is main tained. No fracture. Visualized sacrum and bony pelvis are intact IMPRESSION: Stable osteoarthritic changes
== END 2019-07-28 11:44 | disposition home or self-care (01) ==
LOC: MADLABBHPM 11:43
PROVIDERS: ATTEND Family Medicine
DX: M25.551 Pain in right hip (principal); N31.8 Other neuromuscular dysfunction of bladder; M16.11 Unilateral primary osteoarthritis, right hip; E03.9 Hypothyroidism, unspecified
CPT/HCPCS: 36415; 81001; 84443; 87086

== ENCOUNTER 2019-08-03 07:37 | Inpatient (IN) | payer OTHER ==
[2019-08-03 08:31] LABS: Bilirubin Small (Negative); Blood, Urine Moderate (Negative); Glucose, Urine (Dipstick) Negative (Negative); Leukocyte Moderate (Negative); Nitrite Negative (Negative); Protein, Urine (Dipstick) 30 mg/dL (Neg-Trace); Urobilinogen 0.2 mg/dL (Less than 2)
[2019-08-03 08:38] LABS: Clarity Hazy (Clear)
[2019-08-03 08:41] LABS: #Basophils 0.1 thou/uL (0.0-0.2); #Eosinphils 0.2 thou/uL (0.0-0.7); #Lymphocytes 1.2 thou/uL (1.20-3.40); #Monocytes 0.7 thou/uL (0.11-0.59); #Neutrophils 6.4 thou/uL (1.40-6.50); %Basophils 0.8 % (0.0-1.0); %Eosinophils 2.3 % (0.0-10.0); %Lymphocytes 14.3 % (21.0-51.0); %Monocytes 7.7 % (0.0-10.0); %Neutrophils 74.9 % (42.0-75.0); Hemoglobin 13.2 g/dL (12.0-16.0); Mean Corpuscular HGB CONC 30.5 g/dL (32.0-36.0); Mean Corpuscular Hemoglobin 30.8 pg (27.0-31.0); Mean Corpuscular Volume 100.9 fL (78.0-98.0); Mean Platelet Volume 6.7 fL (7.4-10.4); Platelet Count 329 thou/uL (130-400); RBC Distribution Width 12.7 % (11.5-14.5); Red Blood Cell (RBC) Count 4.28 mill/uL (4.20-5.40); White Blood Cell (WBC) Count 8.6 thou/uL (4.8-10.8)
[2019-08-03 08:42] LABS: WBC/HPF 21-50 HPF (0-3)
[2019-08-03 08:43] LABS: Bacteria/HPF 1+ HPF (None Seen)
[2019-08-03 08:58] LABS: ALT (SGPT) 10 U/L (8-55); AST (SGOT) 10 U/L (5-34); Albumin 3.8 g/dL (3.4-4.8); Alkaline Phosphatase 142 U/L (40-110); Anion Gap 16 mmol/L (10-20); BUN (Urea Nitrogen) 9 mg/dL (9.8-20.1); Bilirubin, Total 0.4 mg/dL (0.2-1.2); Calc. Creatinine Clearance 0 mL/min (70-130); Calcium 9.4 mg/dL (7.8-10.44); Carbon Dioxide 28 mmol/L (23-31); Chloride 99 mmol/L (98-107); Estimated GFR-MDRD 80; Globulin 3.6 g/dL (2.4-3.5); Glucose 106 mg/dL (80-115); Lipase 10 U/L (8-78); Potassium 3.9 mmol/L (3.5-5.1); Protein, Total 7.4 g/dL (6.0-8.3); Sodium 139 mmol/L (136-145)
[2019-08-03] MEDS ORDERED: Iopamidol 370 76% 100 ML VIAL ONE (09:46)
[2019-08-03] MEDS ORDERED: metroNIDAZOLE 500 MG/100 ML BAG ONE (11:13)
[2019-08-03] MEDS ORDERED: Sodium Chloride 0.9% 100 ML ONE (11:13)
[2019-08-03] MEDS ORDERED: cefTRIAXone\\ROCEPHIN 1 GM VIAL ONE (11:13)
[2019-08-03] MEDS ORDERED: Enoxaparin Sodium 40 MG/0.4 ML SYRINGE ONE (11:15)
--- NOTE | 2019-08-03 11:37 | CT ---
CT ABDOMEN AND PELVIS WITH IV CONTRAST: Date: 08/03/19 HISTORY: Suprapubic pain. FINDINGS: Comparison made with exam of 12/13/18. There are minimal dependent changes in the lung bases. The liver, spleen, pancreas, adrenal glands, a nd kidneys appear normal. No calcified gallstones are seen. No free air, free fluid, or lymphadenopat hy noted in the abdomen and pelvis. The circumaortic left renal vein is again seen. A normal appearin g appendix is present. There is colonic diverticulosis. There is thickening of the wall of the sigmoi d colon and mild pericolonic inflammatory changes consistent with sigmoid diverticulitis. No abnormal ly loculated fluid collection is seen to suggest abscess formation. There are vascular calcifications without evidence of aneurysmal dilatation of the abdominal aorta. T here are degenerative changes in the spine. IMPRESSION: Sigmoid diverticulitis. POS: HANS
[2019-08-03] MEDS ORDERED: Sodium Chloride 0.9% 1,000 ML ONE (12:21)
[2019-08-03] MEDS ORDERED: HYDROcodone/Acetaminophen 5/325 mg Tablet PO PRN (13:14)
[2019-08-03] MEDS ORDERED: Senokot 8.6 MG TAB PO PRN (13:14)
[2019-08-03] MEDS ORDERED: Acetaminophen 650 MG Suppository PR PRN (13:14)
[2019-08-03 13:24] VITALS: BMI 46.3
[2019-08-03] MEDS ORDERED: Hyoscyamine Sulfate SL 0.125 mg Tablet PO PRN (13:24)
[2019-08-03] MEDS: Sodium Chloride 0.9% 1,000 ML IV SCH (13:45)
[2019-08-03] MEDS: Acetaminophen 325 MG TAB PO PRN (14:54)
[2019-08-03] MEDS ORDERED: Gabapentin 300 MG CAP PO SCH (15:00)
[2019-08-03] MEDS ORDERED: traMADol HCl 50 MG TAB PO SCH (18:00)
[2019-08-03] MEDS: HYDROcodone/Acetaminophen 5/325 mg Tablet PO PRN ×2 (19:07→23:55)
[2019-08-03] MEDS: Sodium Chloride 0.45% 1,000 ML IV SCH (19:08)
[2019-08-03] MEDS: Mometasone/Formoterol 60 PUFF AER INH SCH (19:09)
[2019-08-03] MEDS ORDERED: Fluticasone Propionate Nasal Spray 16 gm Bottle NASAL PRN (19:23)
[2019-08-04] MEDS: metroNIDAZOLE 500 MG in Premix Bag 1 BAG IVPB SCH ×3 (01:37→18:04)
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
[2019-08-04] MEDS: HYDROcodone/Acetaminophen 5/325 mg Tablet PO PRN (04:05)
[2019-08-04] MEDS: Sodium Chloride 0.45% 1,000 ML IV SCH ×2 (04:27→13:01)
[2019-08-04] MEDS: Levothyroxine Sodium 75 MCG TAB PO SCH (05:15)
[2019-08-04] MEDS: Ondansetron PF 4 MG/2 ML Vial SLOW IVP PRN ×2 (05:41→11:20)
[2019-08-04 05:56] LABS: Anion Gap 16 mmol/L (10-20); BUN (Urea Nitrogen) 7 mg/dL (9.8-20.1); Calc. Creatinine Clearance 153 mL/min (70-130); Calcium 8.9 mg/dL (7.8-10.44); Carbon Dioxide 26 mmol/L (23-31); Chloride 102 mmol/L (98-107); Estimated GFR-MDRD 89; Glucose 102 mg/dL (80-115); Potassium 3.5 mmol/L (3.5-5.1); Sodium 140 mmol/L (136-145)
[2019-08-04] MEDS ORDERED: Levothyroxine Sodium 75 MCG TAB PO SCH (06:00)
[2019-08-04] MEDS ORDERED: Levothyroxine Sodium 100 MCG TAB PO SCH (06:00)
[2019-08-04] MEDS: Fioricet 325/50/40 mg Tablet PO PRN ×4 (07:21→19:33)
[2019-08-04] MEDS: Mometasone/Formoterol 60 PUFF AER INH SCH ×2 (07:30→19:30)
[2019-08-04] MEDS: cefTRIAXone\\ROCEPHIN 1 GM in Sodium Chloride 0.9% 100 ML IVPB SCH (08:08)
[2019-08-04] MEDS: Losartan 25 MG TAB PO SCH (08:09)
[2019-08-04] MEDS: Hydrochlorothiazide 25 MG TAB PO SCH (08:09)
[2019-08-04] MEDS: Lidocaine 5% Patch TD SCH (08:10)
[2019-08-04] MEDS: Enoxaparin Sodium 40 MG/0.4 ML SYRINGE SC SCH (08:10)
[2019-08-04] MEDS ORDERED: Fioricet 325/50/40 mg Tablet PO SCH (09:00)
[2019-08-04] MEDS: Cyclobenzaprine 10 MG TAB PO PRN ×2 (10:30→16:11)
[2019-08-04] MEDS ORDERED: Ketorolac Tromethamine 30 MG/ML VIAL ONE (12:26)
[2019-08-04] MEDS ORDERED: Ketorolac Tromethamine 60 MG/2 ML VIAL IM SCH (12:30)
[2019-08-04] MEDS: Acetaminophen 325 MG TAB PO PRN (16:11)
[2019-08-04] MEDS: Sodium Chloride 0.9% 1,000 ML IV SCH (17:58)
[2019-08-04] MEDS ORDERED: Ketorolac Tromethamine 30 MG/ML VIAL IM PRN (20:07)
[2019-08-04] MEDS: Albuterol Sulfate 2.5 mg/3 ml Neb NEB PRN (20:16)
[2019-08-04] MEDS ORDERED: Lidocaine Patch Removal 1 EACH TOP SCH (21:00)
[2019-08-04] MEDS: Ketorolac Tromethamine 30 MG/ML VIAL IM PRN (22:11)
[2019-08-05] MEDS: Sodium Chloride 0.45% 1,000 ML IV SCH ×2 (01:54→09:29)
[2019-08-05] MEDS: metroNIDAZOLE 500 MG in Premix Bag 1 BAG IVPB SCH ×2 (01:57→09:28)
[2019-08-05] MEDS: HYDROcodone/Acetaminophen 5/325 mg Tablet PO PRN (03:53)
[2019-08-05] MEDS: Albuterol Sulfate 2.5 mg/3 ml Neb NEB PRN (03:54)
[2019-08-05] MEDS: Levothyroxine Sodium 75 MCG TAB PO SCH (05:18)
[2019-08-05] MEDS: Mometasone/Formoterol 60 PUFF AER INH SCH (07:30)
[2019-08-05] MEDS: Losartan 25 MG TAB PO SCH (08:37)
[2019-08-05] MEDS: Hydrochlorothiazide 25 MG TAB PO SCH (08:37)
[2019-08-05] MEDS: cefTRIAXone\\ROCEPHIN 1 GM in Sodium Chloride 0.9% 100 ML IVPB SCH (08:38)
[2019-08-05] MEDS: Lidocaine 5% Patch TD SCH (08:38)
[2019-08-05] MEDS: Enoxaparin Sodium 40 MG/0.4 ML SYRINGE SC SCH (08:38)
[2019-08-05] MEDS: Cyclobenzaprine 10 MG TAB PO PRN (09:28)
[2019-08-05] MEDS ORDERED: Sodium Chloride 0.45% 1,000 ML BAG ONE (10:48)
[2019-08-05] MEDS: Ketorolac Tromethamine 30 MG/ML VIAL IM PRN (11:23)
[2019-08-05] MEDS: Ondansetron PF 4 MG/2 ML Vial SLOW IVP PRN (11:24)
[2019-08-05 16:03] VITALS: BP 152/74; TEMP 97.7
--- NOTE | 2019-08-05 16:31 | DIS ---
DATE OF ADMISSION: 08/03/2019 DATE OF DISCHARGE: 08/05/2019 REASON FOR ADMISSION: Abdominal pain, persistent. DIAGNOSES: 1. Acute diverticulitis, sigmoid. 2. Urinary tract infection. 3. Hypertension. 4. Headache . SECONDARY DIAGNOSES: Asthma, hypothyroid, depression and anxiety. CONDITION ON DISCHARGE: Stable. DISPOSITION: Home. DIET: Regular, low salt, low fat. ACTIVITY: Ad roopa. FOLLOWUP: Follow up with Dr. Mcfadden in 1 week or sooner with concern. DISCHARGE MEDICATIONS: 1. Metronidazole 500 mg p.o. t.i.d. for 10 days. 2. Cipro 500 mg p.o. b.i.d. for 10 days. 3. Butalbital/acetaminophen/caffeine 1 tablet p.o. q.4 hours p.r.n. 4. Losartan/hydrochlorothiazide 100 mg/25 mg p.o. daily. 5. Levothyroxine 150 mcg p.o. q.a.m. 6. Lidocaine patch 1 patch every 2100. 7. Mometasone/formoterol 2 puffs inhaled b.i.d. 8. Sennoside 2 tablets b.i.d. p.r.n. 9. Sertraline 50 mg p.o. daily. 10. Tylenol No. 3 p.o. q.6 hours p.r.n. 11. Acetaminophen 650 mg p.o. q.4 hours p.r.n. HISTORY OF PRESENT ILLNESS AND HOSPITAL COURSE: Ms. Chow is a very pleasant 64-year-old female with history of hypertension, hypothyroidism, and asthma. The patient has been having intermittent abdominal pain over a week now and has progressively worsened. She was initially treated as outpatient with UTI. She has started and initially did well with Cipro empirically, pending urine culture. However, urine culture came back negative. However, the patient reports progressively worsening abdominal pain. She went to [place] [facility] on 08/03/2019 due to worsening abdominal pain. On initial examination at the ER, there was a significant pyuria with bacteria and microscopic hematuria. Her liver enzymes are within normal limits. Her renal function is within normal limits. There is no significant leukocytosis noted. The patient's CT scan showed colonic diverticulosis with thickening of the wall of the sigmoid colon and mild pericolonic inflammatory changes consistent with sigmoid diverticulitis. The patient was admitted for inpatient management of both UTI and diverticulitis. She was empirically treated with Rocephin and metronidazole. Overall, abdominal pain improved over time. She was initially put on n.p.o. and her diet was advanced as the day progressed. The patient tolerated regular diet prior to discharge. The patient remains febrile free over the course. Her urine culture came back negative after 36 hours. She had no significant GI symptoms over the course, except an episode of nausea and vomiting secondary to severe headache. Headache is described as migrainous type. The patient never had a significant history of headache this severe. The patient's headache was not responsive to [place]. She was tried on Fioricet and Toradol that seemed to control the headache. Along with the headache, the patient's blood pressure was likewise notably elevated greater between 160s to 180s over 78 to 90s. Her blood pressure subsided as headache has been controlled. The patient again remained afebrile. There was no BM over the 3-day course of stay. Denies diarrhea, hematochezia, or hematemesis. On 08/05/2019, the patient tolerated regular diet. Headache is much better and requested to go home due to some work scheduled out of town. She was discharged on oral antibiotic including metronidazole and Cipro. Vital signs prior to discharge; blood pressure 142/78, temperature 98.9, pulse 80, respirations 16, O2 saturations 96% on room air. Weight 253 pounds, height 5 feet and 1 inch. Job ID: [id number]
== END 2019-08-05 16:15 | disposition home or self-care (01) | DRG 690 ==
LOC: MADERS 07:37 → MADMS 12:15
PROVIDERS: ADMIT Family Medicine; ATTEND Family Medicine
DX: N39.0 Urinary tract infection, site not specified (principal); K57.92 Diverticulitis of intestine, part unspecified, without perforation or abscess without bleeding; Z68.42 Body mass index [BMI] 45.0-49.9, adult; I10 Essential (primary) hypertension; E03.9 Hypothyroidism, unspecified; J45.909 Unspecified asthma, uncomplicated; G47.33 Obstructive sleep apnea (adult) (pediatric); E66.01 Morbid (severe) obesity due to excess calories; F32.9 Major depressive disorder, single episode, unspecified; F41.9 Anxiety disorder, unspecified; Z90.710 Acquired absence of both cervix and uterus; Z88.8 Allergy status to other drugs, medicaments and biological substances; Z79.899 Other long term (current) drug therapy
CPT/HCPCS: 36415; 74177; 80048; 80053; 81003; 81015; 83605; 83690; 85025; 87086; J0696; J1650; J1885; J2405; J3490; J7050; J7611; Q9967

== ENCOUNTER 2019-08-06 03:10 | Emergency (ER) | payer OTHER ==
[2019-08-06] MEDS ORDERED: Ondansetron ODT 4 MG TAB ONE (03:55)
[2019-08-06] MEDS ORDERED: HYDROcodone/Acetaminophen 5/325 mg Tablet ONE (03:55)
[2019-08-06] MEDS ORDERED: diphenhydrAMINE 50 MG/ML VIAL ONE (04:30)
[2019-08-06] MEDS ORDERED: Dexamethasone 10 MG/ML VIAL ONE (04:30)
[2019-08-06] MEDS ORDERED: Prochlorperazine 10 MG/2 ML VIAL ONE (04:30)
[2019-08-06 04:44] LABS: #Basophils 0.1 thou/uL (0.0-0.2); #Eosinphils 0.3 thou/uL (0.0-0.7); #Monocytes 0.4 thou/uL (0.11-0.59); #Neutrophils 6.2 thou/uL (1.40-6.50); %Basophils 0.9 % (0.0-1.0); %Eosinophils 4.3 % (0.0-10.0); %Monocytes 4.8 % (0.0-10.0); Hemoglobin 12.5 g/dL (12.0-16.0); Mean Corpuscular HGB CONC 32.1 g/dL (32.0-36.0); Mean Corpuscular Volume 99.6 fL (78.0-98.0); Mean Platelet Volume 6.3 fL (7.4-10.4); Platelet Count 340 thou/uL (130-400); RBC Distribution Width 12.3 % (11.5-14.5)
[2019-08-06 04:58] LABS: ALT (SGPT) 12 U/L (8-55); AST (SGOT) 14 U/L (5-34); Albumin 3.7 g/dL (3.4-4.8); Alkaline Phosphatase 120 U/L (40-110); Anion Gap 15 mmol/L (10-20); BUN (Urea Nitrogen) 7 mg/dL (9.8-20.1); Bilirubin, Total 0.3 mg/dL (0.2-1.2); Calc. Creatinine Clearance 0 mL/min (70-130); Carbon Dioxide 28 mmol/L (23-31); Chloride 101 mmol/L (98-107); Estimated GFR-MDRD 82; Globulin 3.2 g/dL (2.4-3.5); Glucose 105 mg/dL (80-115); Potassium 3.6 mmol/L (3.5-5.1); Protein, Total 6.9 g/dL (6.0-8.3); Sodium 140 mmol/L (136-145)
--- NOTE | 2019-08-06 08:21 | CT ---
PRELIMINARY REPORT/[facility]/EMERGENCY AFTER HOURS PROCEDURE: Addendum created by Nikita iKm MD on 08/06/2019 4:05 AM Central Time ([place] & [place]) Findings disc ussed with KSENIA WALTER MD at time of interpretation. Initial Report created on 08/06/2019 4:03 AM Central Time ([place] & [place]) PROCEDURE INFORMATION: Exam: CT Head Without Contrast Exam date and time: 08/06/2019 3:43 AM Age: 64 years old Clinical history: Pain; Headache not specified; Patient HX: Weakness; Patient said she has been diagn osed with brain tumor back in November of 2018. TECHNIQUE: Imaging protocol: Computed tomography of the head without contrast. Radiation optimization: All CT scans at this facility use at least one of these dose optimization [place] hniques: automated exposure control; mA and/or kV adjustment per patient size (includes targeted exam s where dose is matched to clinical indication); or iterative reconstruction. COMPARISON: No relevant prior studies available. FINDINGS: Brain: 4.8 cm partially calcified right parietal dural based mass, possibly a meningioma, with extens keesha adjacent vasogenic edema, potentially malignant. Diffuse sulcal effacement compatible with diffus e cerebral edema. No intracranial hemorrhage. Midline shift: 6 mm leftward midline shift. Ventricles: Normal. No ventriculomegaly. Bones/joints: Unremarkable. No acute fracture. Sinuses: Multifocal sinus fluid levels compatible with sinusitis. Mastoid air cells: Visualized mastoid air cells are well aerated. Soft tissues: Unremarkable. Dental: Periapical dental lucencies. IMPRESSION: 1. 4.8 cm partially calcified right parietal dural based mass, possibly a meningioma, with extensive adjacent vasogenic edema, potentially malignant. 2. Diffuse sulcal effacement compatible with diffuse cerebral edema. 3. 6 mm leftward midline shift. 4. Multifocal sinus fluid levels compatible with sinusitis. Thank you for allowing us to participate in the care of your patient. Dictated and Authenticated by: Nikita Kim MD 08/06/2019 4:03 AM Central Time ([place] & [place]) FINAL REPORT HEAD CT WITHOUT CONTRAST: COMPARISON: 12/12/18. HISTORY: Brain tumor. Headache. FINDINGS/IMPRESSION: This report is in agreement with the preliminary report by Linda. Redemonstration of a partially calcified extra-axial dural based mass is described in the initial rep ort by Linda. When compared to the previous examination, there is no significant change in size of the mass; however, there appears to be progression of vasogenic edema involving the posterior right fron caroline lobe, right parietal and occipital lobe. There is associated sulcal effacement. Right to left subfalcine herniation of 6 mm. POS: [facility]
== END 2019-08-06 05:25 | disposition short-term general hospital (02) ==
LOC: MADERS 03:10
DX: G93.9 Disorder of brain, unspecified (principal); E03.9 Hypothyroidism, unspecified; I10 Essential (primary) hypertension; J45.909 Unspecified asthma, uncomplicated
CPT/HCPCS: 36415; 70450; 80053; 85025; 96374; 96375; J0780; J1100; J1200; Q0162

== ENCOUNTER 2020-05-31 10:58 | Outpatient (CLI) | payer OTHER ==
--- NOTE | 2020-05-31 11:30 | RAD ---
EXAM: Chest 2 views: HISTORY: Preoperative radiograph COMPARISON: None. FINDINGS: There is mildly enlarged cardiomediastinal silhouette. There is no evidence of consolidation, mass, o r pleural effusion. Degenerative changes are seen in the spine. IMPRESSION: No evidence of acute cardiopulmonary disease
[2020-05-31 12:03] LABS: Bilirubin Negative (Negative); Blood, Urine Trace (Negative); Clarity Clear (Clear); Glucose, Urine (Dipstick) Negative (Negative); Ketone, Urine Negative (Negative); Leukocyte Negative (Negative); Nitrite Negative (Negative); Protein, Urine (Dipstick) Negative (Neg-Trace); Specific Gravity, Urine 1.025 (1.005-1.030); Urobilinogen 0.2 mg/dL (Less than 2); pH, Urine 6.5 (5.0-9.0)
[2020-05-31 12:06] LABS: #Basophils 0.1 thou/uL (0.0-0.2); #Eosinphils 0.5 thou/uL (0.0-0.7); #Lymphocytes 1.7 thou/uL (1.20-3.40); #Monocytes 0.6 thou/uL (0.11-0.59); #Neutrophils 6.1 thou/uL (1.40-6.50); %Basophils 1.3 % (0.0-1.0); %Eosinophils 5.1 % (0.0-10.0); %Lymphocytes 18.7 % (21.0-51.0); %Monocytes 6.2 % (0.0-10.0); %Neutrophils 68.7 % (42.0-75.0); Hemoglobin 13.1 g/dL (12.0-16.0); Mean Corpuscular HGB CONC 30.9 g/dL (32.0-36.0); Mean Corpuscular Hemoglobin 29.9 pg (27.0-31.0); Mean Corpuscular Volume 96.6 fL (78.0-98.0); Mean Platelet Volume 7.1 fL (7.4-10.4); Platelet Count 364 thou/uL (130-400); RBC Distribution Width 12.3 % (11.5-14.5); Red Blood Cell (RBC) Count 4.38 mill/uL (4.20-5.40); White Blood Cell (WBC) Count 8.9 thou/uL (4.8-10.8)
[2020-05-31 12:08] LABS: RBC/HPF 0-3 HPF (0-3)
[2020-05-31 12:09] LABS: Bacteria/HPF Rare-Few HPF (None Seen); Squamous Epithelial 0-3 HPF (0-3); WBC/HPF 0-3 HPF (0-3)
[2020-05-31 12:10] LABS: PTT 32.6 sec (22.9-36.1); Prothrombin Time 12.7 sec (12.0-14.7)
[2020-05-31 12:20] LABS: ALT (SGPT) 13 U/L (8-55); AST (SGOT) 13 U/L (5-34); Alkaline Phosphatase 106 U/L (40-110); Anion Gap 15 mmol/L (10-20); BUN (Urea Nitrogen) 16 mg/dL (9.8-20.1); Bilirubin, Total 0.3 mg/dL (0.2-1.2); Calc. Creatinine Clearance 0 mL/min (70-130); Calcium 9.5 mg/dL (7.8-10.44); Carbon Dioxide 30 mmol/L (23-31); Chloride 102 mmol/L (98-107); Estimated GFR-MDRD 77; Glucose 97 mg/dL (80-115); Potassium 3.6 mmol/L (3.5-5.1); Sodium 143 mmol/L (136-145)
== END 2020-05-31 10:59 | disposition home or self-care (01) ==
LOC: MADRAD 10:58
PROVIDERS: ATTEND Family Medicine
DX: Z01.818 Encounter for other preprocedural examination (principal); E03.9 Hypothyroidism, unspecified
CPT/HCPCS: 36415; 71046; 80053; 81001; 84443; 85025; 85610; 85730; 93005; 93010

== ENCOUNTER 2021-10-16 08:26 | Emergency (ER) | payer BC ==
[2021-10-16] MEDS ORDERED: Amlodipine 5 MG TAB ONE (09:01)
[2021-10-16 09:09] LABS: #Basophils 0.1 thou/uL (0.0-0.2); #Eosinphils 0.2 thou/uL (0.0-0.7); #Lymphocytes 0.9 thou/uL (1.20-3.40); #Monocytes 0.4 thou/uL (0.11-0.59); #Neutrophils 3.2 thou/uL (1.40-6.50); %Basophils 1.4 % (0.0-1.0); %Eosinophils 4.7 % (0.0-10.0); %Lymphocytes 19.3 % (21.0-51.0); %Monocytes 8.4 % (0.0-10.0); %Neutrophils 66.1 % (42.0-75.0); Hemoglobin 16.1 g/dL (12.0-16.0); Mean Corpuscular Hemoglobin 32.6 pg (27.0-31.0); Mean Corpuscular Volume 101.8 fL (78.0-98.0); Mean Platelet Volume 6.6 fL (7.4-10.4); Platelet Count 245 thou/uL (130-400); RBC Distribution Width 12.9 % (11.5-14.5); Red Blood Cell (RBC) Count 4.95 mill/uL (4.20-5.40); White Blood Cell (WBC) Count 4.9 thou/uL (4.8-10.8)
[2021-10-16 09:24] LABS: ALT (SGPT) 17 U/L (8-55); AST (SGOT) 20 U/L (5-34); Albumin 4.2 g/dL (3.4-4.8); Alkaline Phosphatase 124 U/L (40-110); Anion Gap 13 mmol/L (10-20); BUN (Urea Nitrogen) 10 mg/dL (9.8-20.1); Calc. Creatinine Clearance 0 mL/min (70-130); Calcium 9.3 mg/dL (7.8-10.44); Carbon Dioxide 28 mmol/L (23-31); Chloride 104 mmol/L (98-107); Globulin 3.4 g/dL (2.4-3.5); Glucose 96 mg/dL (80-115); Potassium 3.9 mmol/L (3.5-5.1); Protein, Total 7.6 g/dL (5.8-8.1); Sodium 141 mmol/L (136-145)
== END 2021-10-16 12:20 | disposition home or self-care (01) ==
LOC: MADERS 08:26
DX: I10 Essential (primary) hypertension (principal); R07.9 Chest pain, unspecified; E03.9 Hypothyroidism, unspecified; J45.909 Unspecified asthma, uncomplicated; Z87.19 Personal history of other diseases of the digestive system; Z79.899 Other long term (current) drug therapy
CPT/HCPCS: 71045; 80053; 84484; 85025; 93005; 94760

== ENCOUNTER 2025-07-02 13:26 | Outpatient (CLI) | payer BC, MEDICARE ==
[2025-07-02 14:16] LABS: Anion Gap 17 mmol/L (10-20); BUN (Urea Nitrogen) 15 mg/dL (9.8-20.1); Calc. Creatinine Clearance 0 mL/min (70-130); Calcium 9.1 mg/dL (7.8-10.44); Carbon Dioxide 22 mmol/L (23-31); Chloride 106 mmol/L (98-107); Glucose 129 mg/dL (80-115); Potassium 3.6 mmol/L (3.5-5.1); Sodium 141 mmol/L (136-145)
[2025-07-02 15:37] LABS: Thyroid Stimulating Hormone 7.0089 uIU/mL (0.35-4.94)
[2025-07-02 23:26] LABS: Hep C IgG Ab NONREACTIVE S/CO (NonReactive); Hep C Index 0.09 S/CO (0-0.79)
== END 2025-07-02 13:27 | disposition home or self-care (01) ==
LOC: MADLAB 13:26
PROVIDERS: ATTEND Family Medicine
DX: Z11.59 Encounter for screening for other viral diseases (principal); E03.9 Hypothyroidism, unspecified; I10 Essential (primary) hypertension
CPT/HCPCS: 36415; 80048; 84443; 86803